=== PATIENT | male | born 1955 | race Caucasian/White ===

== ENCOUNTER 2016-11-25 17:30 | Emergency (ER) | payer OTHER ==
[2016-11-25] MEDS ORDERED: HYDROcodone/Acetaminophen 10/325 mg Tablet ONE (17:56)
[2016-11-25] MEDS ORDERED: Ketorolac Tromethamine 30 MG/ML VIAL ONE (17:57)
== END 2016-11-25 18:20 | disposition home or self-care (01) ==
LOC: BURERS 17:30
DX: G89.29 Other chronic pain (principal); M54.5 Low back pain; I10 Essential (primary) hypertension; F17.210 Nicotine dependence, cigarettes, uncomplicated
CPT/HCPCS: 96372; J1885

== ENCOUNTER 2016-12-30 16:10 | Emergency (ER) | payer OTHER ==
[2016-12-30] MEDS ORDERED: Ondansetron HCl/PF 4 MG/2 ML Vial ONE (16:35)
[2016-12-30 16:39] LABS: #Basophils 0.1 thou/uL (0.0-0.2); #Eosinphils 0.1 thou/uL (0.0-0.7); #Lymphocytes 2.6 thou/uL (1.20-3.40); #Monocytes 0.6 thou/uL (0.11-0.59); #Neutrophils 3.3 thou/uL (1.40-6.50); %Basophils 1.1 % (0.0-1.0); %Eosinophils 1.2 % (0.0-10.0); %Lymphocytes 39.1 % (21.0-51.0); %Monocytes 9.6 % (0.0-10.0); Hemoglobin 14.3 g/dL (14.0-18.0); Mean Corpuscular Hemoglobin 33.5 pg (27.0-31.0); Mean Corpuscular Volume 95.5 fl (80.0-94.0); Mean Platelet Volume 5.4 fL (7.4-10.4); Platelet Count 262 thou/uL (130-400); RBC Distribution Width 11.4 % (11.5-14.5); Red Blood Cell (RBC) Count 4.29 mill/uL (4.70-6.10); White Blood Cell (WBC) Count 6.7 thou/uL (4.8-10.8)
[2016-12-30 16:43] LABS: Bilirubin Negative (Negative); Blood, Urine Negative (Negative); Clarity Clear (Clear); Glucose, Urine (Dipstick) Negative (Negative); Leukocyte Negative (Negative); Nitrite Negative (Negative); Protein, Urine (Dipstick) Negative (Neg-Trace); Urobilinogen 0.2 mg/dL (0.2-1.0)
[2016-12-30 16:44] LABS: Specific Gravity, Urine 1.003 (1.002-1.036)
[2016-12-30] MEDS ORDERED: methylPREDNISolone Sod Succ/PF 125 MG/2 ML VIAL ONE (16:45)
[2016-12-30 16:58] LABS: ALT (SGPT) 33 U/L (0-55); AST (SGOT) 31 U/L (5-34); Albumin 4.4 g/dL (3.4-4.8); Alkaline Phosphatase 57 U/L (40-150); Anion Gap 17 mmol/L (10-20); BUN (Urea Nitrogen) 4 mg/dL (8.4-25.7); Bilirubin, Total 0.5 mg/dL (0.2-1.2); CK (CPK) 211 U/L (30-200); Calc. Creatinine Clearance 0 mL/min (70-130); Calcium 9.1 mg/dL (7.8-10.44); Carbon Dioxide 21 mmol/L (23-31); Chloride 89 mmol/L (98-107); Estimated GFR-MDRD Greater than 90; Globulin 2.8 g/dL (2.4-3.5); Glucose 95 mg/dL (80-115); Lipase 29 U/L (8-78); Protein, Total 7.2 g/dL (5.8-8.1); Sodium 123 mmol/L (136-145)
[2016-12-30] MEDS ORDERED: HYDROcodone/Acetaminophen 5/325 mg Tablet ONE (18:04)
== END 2016-12-30 18:08 | disposition home or self-care (01) ==
LOC: BURERS 16:10
DX: M54.5 Low back pain (principal); J44.9 Chronic obstructive pulmonary disease, unspecified; I10 Essential (primary) hypertension; F17.210 Nicotine dependence, cigarettes, uncomplicated; Z79.899 Other long term (current) drug therapy
CPT/HCPCS: 80053; 81003; 82550; 83690; 85025; 96361; 96374; 96375; 96376; J2270; J2405; J2930; J7620

== ENCOUNTER 2017-01-14 21:56 | Emergency (ER) | payer OTHER ==
[2017-01-14] MEDS ORDERED: Ketorolac Tromethamine 60 MG/2 ML VIAL ONE (22:23)
[2017-01-14] MEDS ORDERED: Morphine Sulfate 2 MG/ML SYRINGE ONE (22:23)
[2017-01-14] MEDS ORDERED: HYDROcodone/Acetaminophen 5/325 mg Tablet ONE (23:38)
== END 2017-01-15 00:08 | disposition home or self-care (01) ==
LOC: BURERS 21:56
DX: M54.5 Low back pain (principal); F10.129 Alcohol abuse with intoxication, unspecified; I10 Essential (primary) hypertension; F17.210 Nicotine dependence, cigarettes, uncomplicated; Z79.899 Other long term (current) drug therapy
CPT/HCPCS: 96372; J1885; J2270

== ENCOUNTER 2017-06-15 21:21 | Emergency (ER) | payer OTHER ==
[2017-06-15] MEDS ORDERED: Triamcinolone 40 MG/ML VIAL ONE (22:28)
[2017-06-15] MEDS ORDERED: Ketorolac Tromethamine 60 MG/2 ML VIAL ONE (22:29)
== END 2017-06-15 23:08 | disposition home or self-care (01) ==
LOC: BURERS 21:21
DX: M10.9 Gout, unspecified (principal); I10 Essential (primary) hypertension; F17.210 Nicotine dependence, cigarettes, uncomplicated; Z79.899 Other long term (current) drug therapy
CPT/HCPCS: 96372; J1885; J3301

== ENCOUNTER 2017-09-17 09:20 | Emergency (ER) | payer OTHER ==
[2017-09-17 09:48] LABS: Hemoglobin 17.7 g/dL (14.0-18.0); Mean Corpuscular HGB CONC 33.9 g/dL (32.0-36.0); Mean Corpuscular Hemoglobin 32.2 pg (27.0-31.0); Mean Corpuscular Volume 94.9 fl (80.0-94.0); Mean Platelet Volume 5.8 fL (7.4-10.4); Platelet Count 187 thou/uL (130-400); RBC Distribution Width 10.9 % (11.5-14.5); White Blood Cell (WBC) Count 5.5 thou/uL (4.8-10.8)
[2017-09-17] MEDS ORDERED: methylPREDNISolone Sod Succ/PF 125 MG/2 ML VIAL ONE (09:54)
[2017-09-17] MEDS ORDERED: Albuterol Sulfate 1.25 MG/3 ML NEB ONE (10:01)
[2017-09-17 10:03] LABS: ALT (SGPT) 35 U/L (8-55); AST (SGOT) 43 U/L (5-34); Albumin 4.2 g/dL (3.4-4.8); Alkaline Phosphatase 60 U/L (40-150); Anion Gap 16 mmol/L (10-20); BUN (Urea Nitrogen) 18 mg/dL (8.4-25.7); Bilirubin, Total 0.6 mg/dL (0.2-1.2); Calc. Creatinine Clearance 0 mL/min (70-130); Calcium 9.9 mg/dL (7.8-10.44); Carbon Dioxide 26 mmol/L (23-31); Chloride 95 mmol/L (98-107); Estimated GFR-MDRD 85; Globulin 3.8 g/dL (2.4-3.5); Glucose 116 mg/dL (80-115); Lipase 12 U/L (8-78); Sodium 133 mmol/L (136-145)
[2017-09-17 10:07] LABS: Band 1 % (5-11); Lymphocytes 19 % (21-51); MDiff Complete? YES; Neutrophil 62 % (42-75); PLT Morphology Comment Appears Adequate; RBC Morphology Normal; Reactive Lymphocytes 18 % (0-10)
[2017-09-17] MEDS ORDERED: cefTRIAXone\\ROCEPHIN 1 GM VIAL ONE (10:14)
[2017-09-17] MEDS ORDERED: Ketorolac Tromethamine 30 MG/ML VIAL ONE (10:35)
--- NOTE | 2017-09-17 20:41 | RAD ---
PORTABLE CHEST: 09/17/17 An AP portable film at 0929 is compared with a 12/18/16 study. The heart size is the same and is unchanged. There is no vascular congestion, edema, or pleural effusions. No lobar infiltrate was seen. The bony structures appear normal. IMPRESSION: No acute thoracic finding. POS: HOME
== END 2017-09-17 11:30 | disposition home or self-care (01) ==
LOC: BURERS 09:20
DX: J44.1 Chronic obstructive pulmonary disease with (acute) exacerbation (principal); J06.9 Acute upper respiratory infection, unspecified; I10 Essential (primary) hypertension; F17.210 Nicotine dependence, cigarettes, uncomplicated; Z79.899 Other long term (current) drug therapy
CPT/HCPCS: 36415; 71010; 80053; 83605; 83690; 83880; 85025; 94640; 94760; 96365; 96375; J0696; J1885; J2930; J7620

== ENCOUNTER 2017-09-23 14:47 | Emergency (ER) | payer OTHER ==
[2017-09-23] MEDS ORDERED: Ketorolac Tromethamine 60 MG/2 ML VIAL ONE (15:09)
[2017-09-23] MEDS ORDERED: Benzonatate 100 MG CAP ONE (15:09)
== END 2017-09-23 15:27 | disposition home or self-care (01) ==
LOC: BURERS 14:47
DX: R07.89 Other chest pain (principal); J44.9 Chronic obstructive pulmonary disease, unspecified; I10 Essential (primary) hypertension; M10.9 Gout, unspecified; F17.210 Nicotine dependence, cigarettes, uncomplicated; Z79.899 Other long term (current) drug therapy
CPT/HCPCS: 96372; J1885

== ENCOUNTER 2018-05-06 15:06 | Emergency (ER) | payer OTHER, SELFPAY ==
[2018-05-06] MEDS ORDERED: Ketorolac Tromethamine 60 MG/2 ML VIAL ONE (15:28)
[2018-05-06] MEDS ORDERED: methylPREDNISolone Sod Succ/PF 125 MG/2 ML VIAL ONE (15:28)
== END 2018-05-06 15:39 | disposition home or self-care (01) ==
LOC: BURERS 15:06
DX: M54.5 Low back pain (principal); J44.1 Chronic obstructive pulmonary disease with (acute) exacerbation; I10 Essential (primary) hypertension; F17.210 Nicotine dependence, cigarettes, uncomplicated
CPT/HCPCS: 96372; J1885; J2930

== ENCOUNTER 2018-05-07 12:45 | Emergency (ER) | payer OTHER | END 2018-05-07 12:59 | disposition home or self-care (01) | LOC: BURERS 12:45 | DX: M54.5 Low back pain (principal); F17.210 Nicotine dependence, cigarettes, uncomplicated; M10.9 Gout, unspecified; J44.9 Chronic obstructive pulmonary disease, unspecified | CPT/HCPCS: 99283 ==

== ENCOUNTER 2018-10-01 15:33 | Emergency (ER) | payer OTHER ==
[2018-10-01] MEDS ORDERED: Morphine 4 MG/ML VIAL ONE (16:21)
[2018-10-01] MEDS ORDERED: Ondansetron PF 4 MG/2 ML Vial ONE (16:22)
[2018-10-01 16:29] LABS: #Basophils 0.1 thou/uL (0.0-0.2); #Eosinphils 0.1 thou/uL (0.0-0.7); #Lymphocytes 2.9 thou/uL (1.20-3.40); #Monocytes 0.6 thou/uL (0.11-0.59); #Neutrophils 2.6 thou/uL (1.40-6.50); %Lymphocytes 46.1 % (21.0-51.0); %Monocytes 9.3 % (0.0-10.0); %Neutrophils 41.6 % (42.0-75.0); Hemoglobin 16.3 g/dL (14.0-18.0); Mean Corpuscular HGB CONC 37.6 g/dL (32.0-36.0); Mean Corpuscular Hemoglobin 32.2 pg (27.0-31.0); Mean Corpuscular Volume 85.6 fL (78.0-98.0); Mean Platelet Volume 5.9 fL (7.4-10.4); Platelet Count 243 thou/uL (130-400); RBC Distribution Width 10.8 % (11.5-14.5); Red Blood Cell (RBC) Count 5.06 mill/uL (4.70-6.10); White Blood Cell (WBC) Count 6.4 thou/uL (4.8-10.8)
[2018-10-01 16:30] LABS: Manual Diff?? YES
[2018-10-01 16:31] LABS: MDiff Complete? YES
[2018-10-01 16:36] LABS: ALT (SGPT) 25 U/L (8-55); AST (SGOT) 21 U/L (5-34); Albumin 4.4 g/dL (3.4-4.8); Alcohol 196 mg/dL (Less than 10); Alkaline Phosphatase 52 U/L (40-150); Anion Gap 16 mmol/L (10-20); BUN (Urea Nitrogen) 7 mg/dL (8.4-25.7); Bilirubin, Total 0.4 mg/dL (0.2-1.2); Calc. Creatinine Clearance 0 mL/min (70-130); Calcium 9.1 mg/dL (7.8-10.44); Carbon Dioxide 24 mmol/L (23-31); Chloride 90 mmol/L (98-107); Estimated GFR-MDRD Greater than 90; Globulin 2.9 g/dL (2.4-3.5); Glucose 97 mg/dL (80-115); Potassium 3.8 mmol/L (3.5-5.1); Protein, Total 7.3 g/dL (5.8-8.1); Sodium 126 mmol/L (136-145)
[2018-10-01] MEDS ORDERED: Pantoprazole 40 MG VIAL ONE (17:25)
[2018-10-01] MEDS ORDERED: Ketorolac Tromethamine 30 MG/ML VIAL ONE (17:25)
--- NOTE | 2018-10-01 18:47 | CT ---
CT OF ABDOMEN AND PELVIS WITH CONTRAST: 10/01/18 COMPARISON: 12/18/16 HISTORY: Abdominal pain. The patient thinks that this could be pancreatitis as it is similar to a prior episode of pancreatiti s. TECHNIQUE: Multiple contiguous axial images were obtained in a CT of the abdomen and pelvis with contrast. Coron al reformats were performed. FINDINGS: The liver, gallbladder, kidneys, adrenal glands, spleen, and pancreas are unremarkable. No free air, free fluid, or stranding changes are seen in the abdomen or pelvis. The large and small bowel are unremarkable. No abdominal or pelvic lymphadenopathy are seen. Prostate is mildly enlarged. Atherosclerotic calcifications are seen in the aorta. These calcifications are w orst distally. There is an area of significant high grade flow stenosis of the left external iliac ar felisa. This has worsened compared to the prior examination. Degenerative changes are seen in the spine. The abdominal wall soft tissues and visualized inferior t horax are unremarkable. IMPRESSION: 1. No evidence of acute intra-abdominal/pelvic abnormality. 2. Atherosclerotic disease. There is an area of focal high grade stenosis of the left external i liac artery. However, this is patent at this time, evaluation with angiography or a CTA is likely nec essary. Correlate with symptoms of claudication or rest pain. POS: [facility]
== END 2018-10-01 17:37 | disposition home or self-care (01) ==
LOC: BURERS 15:33
DX: R10.9 Unspecified abdominal pain (principal); J44.9 Chronic obstructive pulmonary disease, unspecified; I10 Essential (primary) hypertension; M10.9 Gout, unspecified; F17.210 Nicotine dependence, cigarettes, uncomplicated
CPT/HCPCS: 74177; 80053; 80307; 82150; 83690; 84484; 85025; 93005; 96374; 96375; C9113; J1885; J2270; J2405

== ENCOUNTER 2018-10-26 15:02 | Emergency (ER) | payer OTHER ==
[2018-10-26] MEDS ORDERED: Ondansetron ODT 4 MG TAB ONE (15:14)
== END 2018-10-26 15:48 | disposition home or self-care (01) ==
LOC: BURERS 15:02
DX: R11.2 Nausea with vomiting, unspecified (principal); J44.9 Chronic obstructive pulmonary disease, unspecified; I10 Essential (primary) hypertension; M10.9 Gout, unspecified; F17.210 Nicotine dependence, cigarettes, uncomplicated
CPT/HCPCS: 87804; 96372; Q0162

== ENCOUNTER 2018-11-10 16:34 | Emergency (ER) | payer OTHER ==
[2018-11-10 17:06] LABS: #Basophils 0.1 thou/uL (0.0-0.2); #Eosinphils 0.1 thou/uL (0.0-0.7); #Lymphocytes 2.3 thou/uL (1.20-3.40); #Monocytes 0.5 thou/uL (0.11-0.59); #Neutrophils 3.9 thou/uL (1.40-6.50); %Basophils 0.9 % (0.0-1.0); %Eosinophils 1.2 % (0.0-10.0); %Lymphocytes 33.9 % (21.0-51.0); %Monocytes 6.7 % (0.0-10.0); %Neutrophils 57.3 % (42.0-75.0); Hemoglobin 15.1 g/dL (14.0-18.0); Mean Corpuscular HGB CONC 36.1 g/dL (32.0-36.0); Mean Corpuscular Hemoglobin 32.5 pg (27.0-31.0); Mean Platelet Volume 5.4 fL (7.4-10.4); Platelet Count 370 thou/uL (130-400); RBC Distribution Width 10.7 % (11.5-14.5); Red Blood Cell (RBC) Count 4.65 mill/uL (4.70-6.10); White Blood Cell (WBC) Count 6.8 thou/uL (4.8-10.8)
[2018-11-10] MEDS ORDERED: Benzonatate 100 MG CAP ONE (17:11)
[2018-11-10] MEDS ORDERED: methylPREDNISolone Sod Succ/PF 125 MG/2 ML VIAL ONE (17:11)
[2018-11-10 17:24] LABS: ALT (SGPT) 18 U/L (8-55); AST (SGOT) 18 U/L (5-34); Albumin 3.9 g/dL (3.4-4.8); Alkaline Phosphatase 52 U/L (40-150); Anion Gap 15 mmol/L (10-20); BUN (Urea Nitrogen) 10 mg/dL (8.4-25.7); Bilirubin, Total 0.3 mg/dL (0.2-1.2); Calc. Creatinine Clearance 0 mL/min (70-130); Calcium 9.8 mg/dL (7.8-10.44); Carbon Dioxide 25 mmol/L (23-31); Chloride 98 mmol/L (98-107); Estimated GFR-MDRD Greater than 90; Globulin 3.4 g/dL (2.4-3.5); Glucose 120 mg/dL (80-115); Potassium 3.9 mmol/L (3.5-5.1); Protein, Total 7.3 g/dL (5.8-8.1); Sodium 134 mmol/L (136-145)
--- NOTE | 2018-11-10 21:46 | RAD ---
CHEST TWO VIEWS: 11/10/2018 COMPARISON: 09/17/2017 FINDINGS: The heart is normal in size. There is no vascular congestion, edema, or pleural effusion. The lungs are mildly hyperinflated. On the lateral view, there is suggestion of a little streaking b ehind the heart. On the PA film, there is some questionable streaking near the cardiac apex. I danyelle ot exclude a very minor left basilar infiltrate. The lungs are otherwise clear. IMPRESSION: Equivocal left basilar infiltrate. POS: HOME
== END 2018-11-10 17:57 | disposition home or self-care (01) ==
LOC: BURERS 16:34
DX: J44.1 Chronic obstructive pulmonary disease with (acute) exacerbation (principal); I10 Essential (primary) hypertension; F17.210 Nicotine dependence, cigarettes, uncomplicated; M10.9 Gout, unspecified
CPT/HCPCS: 71046; 80053; 84484; 85025; 93005; 96374; J2930; J7620

== ENCOUNTER 2018-11-16 12:32 | Emergency (ER) | payer OTHER ==
[2018-11-16] MEDS ORDERED: Fentanyl 100 MCG/2 ML VIAL ONE ×2 (12:55→13:57)
[2018-11-16] MEDS ORDERED: Thiamine HCl 200 MG/2 ML VIAL ONE (12:56)
[2018-11-16] MEDS ORDERED: Famotidine In NaCl 20 mg/50 ml Premix Bag ONE (12:56)
[2018-11-16] MEDS ORDERED: Ondansetron ODT 4 MG TAB ONE (12:56)
[2018-11-16 13:12] LABS: Clarity Clear (Clear)
[2018-11-16 13:15] LABS: Bilirubin Negative (Negative); Blood, Urine Negative (Negative); Glucose, Urine (Dipstick) Negative (Negative); Leukocyte Negative (Negative); Nitrite Negative (Negative); Protein, Urine (Dipstick) Negative (Neg-Trace); Specific Gravity, Urine 1.002 (1.002-1.036); Urobilinogen 0.2 mg/dL (0.2-1.0)
[2018-11-16 13:19] LABS: #Basophils 0.1 thou/uL (0.0-0.2); #Eosinphils 0.1 thou/uL (0.0-0.7); #Lymphocytes 3.1 thou/uL (1.20-3.40); #Monocytes 0.7 thou/uL (0.11-0.59); #Neutrophils 4.8 thou/uL (1.40-6.50); %Eosinophils 0.6 % (0.0-10.0); %Lymphocytes 35.6 % (21.0-51.0); %Monocytes 7.6 % (0.0-10.0); %Neutrophils 55.2 % (42.0-75.0); Hemoglobin 16.8 g/dL (14.0-18.0); Mean Corpuscular HGB CONC 34.8 g/dL (32.0-36.0); Mean Corpuscular Hemoglobin 31.4 pg (27.0-31.0); Mean Corpuscular Volume 90.3 fL (78.0-98.0); Mean Platelet Volume 5.8 fL (7.4-10.4); Platelet Count 383 thou/uL (130-400); RBC Distribution Width 10.9 % (11.5-14.5); Red Blood Cell (RBC) Count 5.34 mill/uL (4.70-6.10); White Blood Cell (WBC) Count 8.7 thou/uL (4.8-10.8)
[2018-11-16 13:33] LABS: ALT (SGPT) 27 U/L (8-55); AST (SGOT) 21 U/L (5-34); Albumin 4.3 g/dL (3.4-4.8); Alcohol 135 mg/dL (Less than 10); Alkaline Phosphatase 56 U/L (40-150); Anion Gap 16 mmol/L (10-20); BUN (Urea Nitrogen) 10 mg/dL (8.4-25.7); Bilirubin, Total 0.6 mg/dL (0.2-1.2); Calc. Creatinine Clearance 0 mL/min (70-130); Calcium 9.6 mg/dL (7.8-10.44); Carbon Dioxide 24 mmol/L (23-31); Chloride 94 mmol/L (98-107); Estimated GFR-MDRD Greater than 90; Globulin 3.3 g/dL (2.4-3.5); Glucose 91 mg/dL (80-115); Lipase 35 U/L (8-78); Magnesium 2.1 mg/dL (1.6-2.6); Potassium 3.7 mmol/L (3.5-5.1); Protein, Total 7.6 g/dL (5.8-8.1); Sodium 130 mmol/L (136-145)
[2018-11-16] MEDS ORDERED: Lidocaine Viscous Sol 2% 15 ml UD Cup ONE (14:41)
[2018-11-16] MEDS ORDERED: Mag-Al Plus 1200 MG/1200 MG/120 MG/30 ML UDCUP ONE (14:41)
== END 2018-11-16 15:22 | disposition home or self-care (01) ==
LOC: BURERS 12:32
DX: K29.60 Other gastritis without bleeding (principal); F10.129 Alcohol abuse with intoxication, unspecified; I10 Essential (primary) hypertension; M10.9 Gout, unspecified; F17.210 Nicotine dependence, cigarettes, uncomplicated
CPT/HCPCS: 80053; 80307; 81003; 83690; 83735; 83880; 84484; 85025; 94640; 94760; 96361; 96365; 96375; 96376; J3010; J3411; J7620; Q0162

== ENCOUNTER 2018-12-29 07:16 | Emergency (ER) | payer OTHER ==
[2018-12-29] MEDS ORDERED: Fentanyl 100 MCG/2 ML VIAL ONE (07:37)
[2018-12-29] MEDS ORDERED: Ondansetron PF 4 MG/2 ML Vial ONE (07:37)
[2018-12-29 07:48] LABS: #Lymphocytes 1.7 thou/uL (1.20-3.40); #Monocytes 0.6 thou/uL (0.11-0.59); #Neutrophils 7.3 thou/uL (1.40-6.50); %Basophils 0.5 % (0.0-1.0); %Eosinophils 0.2 % (0.0-10.0); %Monocytes 6.3 % (0.0-10.0); Hemoglobin 16.3 g/dL (14.0-18.0); Mean Corpuscular HGB CONC 34.2 g/dL (32.0-36.0); Mean Corpuscular Hemoglobin 32.3 pg (27.0-31.0); Mean Corpuscular Volume 94.3 fL (78.0-98.0); Mean Platelet Volume 5.5 fL (7.4-10.4); Platelet Count 289 thou/uL (130-400); RBC Distribution Width 12.4 % (11.5-14.5); Red Blood Cell (RBC) Count 5.05 mill/uL (4.70-6.10); White Blood Cell (WBC) Count 9.7 thou/uL (4.8-10.8)
[2018-12-29 08:04] LABS: ALT (SGPT) 27 U/L (8-55); AST (SGOT) 16 U/L (5-34); Albumin 4.3 g/dL (3.4-4.8); Alkaline Phosphatase 51 U/L (40-150); Anion Gap 17 mmol/L (10-20); BUN (Urea Nitrogen) 14 mg/dL (8.4-25.7); Bilirubin, Total 0.7 mg/dL (0.2-1.2); Calc. Creatinine Clearance 0 mL/min (70-130); Calcium 9.5 mg/dL (7.8-10.44); Carbon Dioxide 25 mmol/L (23-31); Chloride 93 mmol/L (98-107); Estimated GFR-MDRD 73; Globulin 2.8 g/dL (2.4-3.5); Glucose 172 mg/dL (80-115); Lipase 22 U/L (8-78); Potassium 3.9 mmol/L (3.5-5.1); Protein, Total 7.1 g/dL (5.8-8.1); Sodium 131 mmol/L (136-145)
[2018-12-29] MEDS ORDERED: Morphine 4 MG/ML VIAL ONE (08:09)
[2018-12-29] MEDS ORDERED: Iopamidol 370 76% 100 ML VIAL ONE (08:20)
[2018-12-29] MEDS ORDERED: Mag-Al Plus 1200 MG/1200 MG/120 MG/30 ML UDCUP ONE (08:44)
[2018-12-29] MEDS ORDERED: Lidocaine Viscous Sol 2% 15 ml UD Cup ONE (08:44)
[2018-12-29] MEDS ORDERED: Pantoprazole 40 MG VIAL ONE (08:44)
--- NOTE | 2018-12-29 18:54 | CT ---
CT ABDOMEN PELVIS WITH CONTRAST: Date: 12-29-18 Technique: Spiral CT of the abdomen and pelvis was performed for evaluation of epigastric pain. Comparison: Prior scans including those from 10-01-18 and 05-12-15. History: There is a prior history of pancreatitis. FINDINGS: The lung bases are clear, however, there is a small 2.7 cm pleural-based mass in the left lower chest anteriorly at the level of the heart. It was not present on the prior scan of 10-01-18. I see no abn ormality then, even in retrospect. This requires further follow up. Some of its edges are slightly ir regular. Thus, a neoplasm is not ruled out. The liver and spleen are normal in size. There is a very vague low density area in the peripheral rig ht lobe of the liver and in the inferior right lobe, the latter of which shows some contrast enhancem ent. The appearance is very similar to the September study and has not changed significantly. A small hemangioma is possible, or small cyst. The pancreas appeared normal with no sign of mass or peripancr eatic streaking to suggest pancreatitis. No adrenal or renal abnormality was seen. The aorta is calci fied but is normal in caliber throughout. There are some fluid filled loops of proximal small bowel and fluid also in the stomach. Some of the small bowel loops are perhaps minimally thickened. There is no obstruction. The findings raise the po ssibility of gastroenteritis. I would note that the patient has a bowel malrotation which much of th e small bowel in the right upper quadrant, a finding that has been mentioned on prior scans. No free air or free fluid was seen. CT of the pelvis shows no pelvic masses, fluid collections, or inflammatory changes. The prostate is somewhat large measuring a little over 5 cm in diameter. IMPRESSION: 1. No evidence of pancreatitis. 2. Fluid-filled stomach and proximal small bowel with some mild thickening. Gastroenteritis is consid ered. 3. 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 4. 2.7 cm pleural-based mass in the left lower chest anteriorly, this is a new finding that was not p resent on the September [address] scan[address] scan of the contrast is recommended and this ultimately may ne ed to be biopsied. Initial report discussed with Dr. Malave at 0836 on 12-29-18. Follow up discussion with Dr. Boucher on 1719 on 12-29-18 regarding the pleural-based mass and need for further follow up. POS: HOME
== END 2018-12-29 08:57 | disposition home or self-care (01) ==
LOC: BURERS 07:16
DX: R10.10 Upper abdominal pain, unspecified (principal); J44.9 Chronic obstructive pulmonary disease, unspecified; I10 Essential (primary) hypertension; M10.9 Gout, unspecified; F17.210 Nicotine dependence, cigarettes, uncomplicated
CPT/HCPCS: 74177; 80053; 83690; 84484; 85025; 93005; 96374; 96375; C9113; J2270; J2405; J3010; Q9967

== ENCOUNTER 2019-01-14 16:23 | Emergency (ER) | payer OTHER ==
[2019-01-14] MEDS ORDERED: traMADol HCl 50 MG TAB ONE (17:00)
[2019-01-14] MEDS ORDERED: Ketorolac Tromethamine 30 MG/ML VIAL ONE (17:01)
== END 2019-01-14 17:07 | disposition home or self-care (01) ==
LOC: BURERS 16:23
DX: M54.5 Low back pain (principal); J44.9 Chronic obstructive pulmonary disease, unspecified; F17.210 Nicotine dependence, cigarettes, uncomplicated; M10.9 Gout, unspecified
CPT/HCPCS: 96372; J1885

== ENCOUNTER 2019-05-14 18:50 | Emergency (ER) | payer MEDICARE, OTHER ==
--- NOTE | 2019-05-14 23:05 | RAD ---
CHEST: 05/14/2019 COMPARISON: PA and lateral views are compared with prior studies dating back to 09/17/2017. FINDINGS: The heart is normal in size. There is no lobar infiltrate or effusion. The lungs are slightly hyper expanded. There is some linear streaking near the lingula of the left upper lobe. This could just b e atelectasis or scarring. Otherwise, the lungs are unremarkable. IMPRESSION: Slightly hyperexpanded lungs. Lingular streaking, which seems more likely old than new. POS: HOME
== END 2019-05-14 19:29 | disposition home or self-care (01) ==
LOC: BURERS 18:50
DX: J06.9 Acute upper respiratory infection, unspecified (principal); I10 Essential (primary) hypertension; J44.9 Chronic obstructive pulmonary disease, unspecified; M10.9 Gout, unspecified; F17.210 Nicotine dependence, cigarettes, uncomplicated
CPT/HCPCS: 71046

== ENCOUNTER 2019-10-29 13:05 | Emergency (ER) | payer MEDICARE ==
[2019-10-29] MEDS ORDERED: Ketorolac Tromethamine 30 MG/ML VIAL ONE (14:06)
[2019-10-29 14:12] LABS: #Basophils 0.1 thou/uL (0.0-0.2); #Eosinphils 0.1 thou/uL (0.0-0.7); #Lymphocytes 2.5 thou/uL (1.20-3.40); #Monocytes 0.7 thou/uL (0.11-0.59); #Neutrophils 6.9 thou/uL (1.40-6.50); %Basophils 0.8 % (0.0-1.0); %Eosinophils 0.9 % (0.0-10.0); %Lymphocytes 23.9 % (21.0-51.0); %Neutrophils 67.4 % (42.0-75.0); Hemoglobin 14.9 g/dL (14.0-18.0); Mean Corpuscular HGB CONC 33.8 g/dL (32.0-36.0); Mean Corpuscular Hemoglobin 31.7 pg (27.0-31.0); Mean Corpuscular Volume 93.8 fL (78.0-98.0); Mean Platelet Volume 5.6 fL (7.4-10.4); Platelet Count 324 thou/uL (130-400); Red Blood Cell (RBC) Count 4.68 mill/uL (4.70-6.10); White Blood Cell (WBC) Count 10.3 thou/uL (4.8-10.8)
[2019-10-29 14:27] LABS: ALT (SGPT) 16 U/L (8-55); AST (SGOT) 15 U/L (5-34); Albumin 4.2 g/dL (3.4-4.8); Alkaline Phosphatase 51 U/L (40-110); Anion Gap 18 mmol/L (10-20); BUN (Urea Nitrogen) 8 mg/dL (8.4-25.7); Bilirubin, Total 0.3 mg/dL (0.2-1.2); Calc. Creatinine Clearance 0 mL/min (70-130); Calcium 9.5 mg/dL (7.8-10.44); Carbon Dioxide 22 mmol/L (23-31); Chloride 95 mmol/L (98-107); Estimated GFR-MDRD Greater than 90; Globulin 3.2 g/dL (2.4-3.5); Glucose 97 mg/dL (80-115); Potassium 3.9 mmol/L (3.5-5.1); Protein, Total 7.4 g/dL (5.8-8.1); Sodium 131 mmol/L (136-145)
--- NOTE | 2019-10-29 17:55 | RAD ---
PORTABLE CHEST: 10/29/19 An AP portable film at 1410 is compared with an 05/14/19 study. The heart is normal in size and the lungs are clear. There is no sign of pneumonia, pleural effusion, or pulmonary edema. IMPRESSION: No acute thoracic finding. POS: HOME
== END 2019-10-29 15:33 | disposition home or self-care (01) ==
LOC: BURERS 13:05
DX: J06.9 Acute upper respiratory infection, unspecified (principal); J44.9 Chronic obstructive pulmonary disease, unspecified; M10.9 Gout, unspecified; I10 Essential (primary) hypertension; F17.210 Nicotine dependence, cigarettes, uncomplicated
CPT/HCPCS: 71045; 80053; 83880; 84484; 85025; 87804; 93005; 96372; J1885; J7620

== ENCOUNTER 2019-11-05 12:23 | Emergency (ER) | payer MEDICARE ==
[2019-11-05] MEDS ORDERED: AMOXicillin 250 MG CAP ONE (13:00)
== END 2019-11-05 13:28 | disposition home or self-care (01) ==
LOC: BURERS 12:23
DX: J06.9 Acute upper respiratory infection, unspecified (principal); I10 Essential (primary) hypertension; J44.9 Chronic obstructive pulmonary disease, unspecified; M10.9 Gout, unspecified; F17.210 Nicotine dependence, cigarettes, uncomplicated; Z79.899 Other long term (current) drug therapy; Z79.51 Long term (current) use of inhaled steroids
CPT/HCPCS: 94640; J7620

== ENCOUNTER 2020-04-09 13:59 | Emergency (ER) | payer MEDICARE | END 2020-04-09 14:50 | disposition home or self-care (01) | LOC: BURERS 13:59 | DX: K40.90 Unilateral inguinal hernia, without obstruction or gangrene, not specified as recurrent (principal); I10 Essential (primary) hypertension; J44.9 Chronic obstructive pulmonary disease, unspecified; M10.9 Gout, unspecified; F17.210 Nicotine dependence, cigarettes, uncomplicated; Z79.899 Other long term (current) drug therapy ==

== ENCOUNTER 2020-09-16 14:20 | Emergency (ER) | payer MEDICARE ==
[2020-09-16] MEDS ORDERED: Ketorolac Tromethamine 30 MG/ML VIAL ONE (15:40)
[2020-09-16] MEDS ORDERED: predniSONE 20 MG TAB ONE (15:40)
--- NOTE | 2020-09-16 16:43 | RAD ---
RIGHT WRIST THREE VIEWS: 09/16/20 No acute fracture or area of bony destruction was seen. there may have been old trauma to the scaphoi d but certainly nothing recent. The carpal relationships are normal in appearance. The scapholunate s pace appears widened and there may even be a few old bony fragments here. It would not surprise me if there was a scapholunate dissociation from the past. There is at least 3 mm between these two bones. Arterial calcifications were noted. 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 No acute bony findings. POS: HOME
--- NOTE | 2020-09-16 16:47 | RAD ---
LEFT WRIST THREE VIEWS: 09/16/20 No acute fracture was seen. Arthritic changes are not prominent. There is a small amount of irregular ity to the scaphoid. There might have been old trauma here in the past. The articulation between the hamate and base of the fifth metacarpal seems flattened. I would not be surprised if there were old t rauma in this location in the past. There does appear to be some irregularity of the distal ulna at t he styloid suggesting old trauma. Finally, there may be some calcification of the triangular fibrocar tilage on the medial side of the wrist. This can sometimes be seen in various causes of chondrocalcin osis such as pyrophosphate deposition diseases. IMPRESSION: 1. Probable old trauma to the wrist but no acute findings. 2. Calcification of the triangular fibrocartilage. See above. POS: HOME
== END 2020-09-16 15:54 | disposition home or self-care (01) ==
LOC: BURERS 14:20
DX: M25.531 Pain in right wrist (principal); M25.532 Pain in left wrist; I10 Essential (primary) hypertension; J44.9 Chronic obstructive pulmonary disease, unspecified; M10.9 Gout, unspecified; F17.210 Nicotine dependence, cigarettes, uncomplicated
CPT/HCPCS: 96372; J1885; J7512

== ENCOUNTER 2020-11-11 13:18 | Emergency (ER) | payer MEDICARE ==
[2020-11-11] MEDS ORDERED: Ketorolac Tromethamine 30 MG/ML VIAL ONE (13:44)
== END 2020-11-11 14:08 | disposition home or self-care (01) ==
LOC: BURERS 13:18
DX: G56.03 Carpal tunnel syndrome, bilateral upper limbs (principal); I10 Essential (primary) hypertension; J44.9 Chronic obstructive pulmonary disease, unspecified; M10.9 Gout, unspecified; F17.210 Nicotine dependence, cigarettes, uncomplicated
CPT/HCPCS: 96372; 99283; J1885

== ENCOUNTER 2021-04-14 12:15 | Emergency (ER) | payer MEDICARE ==
[2021-04-14] MEDS ORDERED: Ketorolac Tromethamine 30 MG/ML VIAL ONE (12:52)
== END 2021-04-14 13:26 | disposition home or self-care (01) ==
LOC: BURERS 12:15
DX: G56.01 Carpal tunnel syndrome, right upper limb (principal); I10 Essential (primary) hypertension; J44.9 Chronic obstructive pulmonary disease, unspecified; M10.9 Gout, unspecified; F17.210 Nicotine dependence, cigarettes, uncomplicated
CPT/HCPCS: 96372; 99283; J1885

== ENCOUNTER 2021-06-12 14:18 | Emergency (ER) | payer MEDICARE ==
[2021-06-12] MEDS ORDERED: AMOXicillin 250 MG CAP ONE (14:41)
== END 2021-06-12 14:58 | disposition home or self-care (01) ==
LOC: BURERS 14:18
DX: H66.92 Otitis media, unspecified, left ear (principal); J44.9 Chronic obstructive pulmonary disease, unspecified; J06.9 Acute upper respiratory infection, unspecified; I10 Essential (primary) hypertension; M10.9 Gout, unspecified; F17.210 Nicotine dependence, cigarettes, uncomplicated
CPT/HCPCS: 99283

== ENCOUNTER 2021-07-30 14:15 | Emergency (ER) | payer MEDICARE ==
[2021-07-30] MEDS ORDERED: Ketorolac Tromethamine 30 MG/ML VIAL ONE (14:59)
== END 2021-07-30 15:15 | disposition home or self-care (01) ==
LOC: BURERS 14:15
DX: G89.18 Other acute postprocedural pain (principal); M25.531 Pain in right wrist; I10 Essential (primary) hypertension; J44.9 Chronic obstructive pulmonary disease, unspecified; F17.210 Nicotine dependence, cigarettes, uncomplicated
CPT/HCPCS: 96372; J1885

== ENCOUNTER 2021-09-19 16:35 | Emergency (ER) | payer MEDICARE ==
[2021-09-19] MEDS ORDERED: Ketorolac Tromethamine 30 MG/ML VIAL ONE (17:05)
== END 2021-09-19 17:11 | disposition home or self-care (01) ==
LOC: BURERS 16:35
DX: M79.641 Pain in right hand (principal); G89.29 Other chronic pain; L53.9 Erythematous condition, unspecified; I10 Essential (primary) hypertension; J44.9 Chronic obstructive pulmonary disease, unspecified; M10.9 Gout, unspecified; F17.210 Nicotine dependence, cigarettes, uncomplicated; Z79.899 Other long term (current) drug therapy
CPT/HCPCS: 96372; 99283; J1885

== ENCOUNTER 2021-09-29 14:17 | Emergency (ER) | payer MEDICARE | END 2021-09-29 14:47 | disposition home or self-care (01) | LOC: BURERS 14:17 | DX: M25.531 Pain in right wrist (principal); I10 Essential (primary) hypertension; J44.9 Chronic obstructive pulmonary disease, unspecified; M10.9 Gout, unspecified; F17.210 Nicotine dependence, cigarettes, uncomplicated | CPT/HCPCS: 99283 ==

== ENCOUNTER 2022-01-07 16:46 | Emergency (ER) | payer MEDICARE ==
[2022-01-07] MEDS ORDERED: predniSONE 20 MG TAB ONE (18:26)
== END 2022-01-07 18:30 | disposition home or self-care (01) ==
LOC: BURERS 16:46
DX: M25.531 Pain in right wrist (principal); J44.9 Chronic obstructive pulmonary disease, unspecified; F17.210 Nicotine dependence, cigarettes, uncomplicated
CPT/HCPCS: J7512

== ENCOUNTER 2022-02-11 14:25 | Emergency (ER) | payer MEDICARE, OTHER ==
[2022-02-11] MEDS ORDERED: Ketorolac Tromethamine 30 MG/ML VIAL ONE (14:39)
[2022-02-11] MEDS ORDERED: Dexamethasone 4 MG TAB ONE (14:41)
== END 2022-02-11 14:56 | disposition home or self-care (01) ==
LOC: BURERS 14:25
DX: G89.29 Other chronic pain (principal); M54.50 Low back pain, unspecified; I10 Essential (primary) hypertension; J44.9 Chronic obstructive pulmonary disease, unspecified; F17.210 Nicotine dependence, cigarettes, uncomplicated; Z79.899 Other long term (current) drug therapy
CPT/HCPCS: 96372; 99283; J1885; J8540

== ENCOUNTER 2022-03-20 13:58 | Emergency (ER) | payer OTHER ==
[2022-03-20 15:21] LABS: #Basophils 0.1 thou/uL (0.0-0.2); #Eosinphils 0.1 thou/uL (0.0-0.7); #Lymphocytes 2.8 thou/uL (1.20-3.40); #Monocytes 0.6 thou/uL (0.11-0.59); #Neutrophils 3.6 thou/uL (1.40-6.50); %Eosinophils 1.5 % (0.0-10.0); %Lymphocytes 39.4 % (21.0-51.0); %Neutrophils 50.1 % (42.0-75.0); Hemoglobin 14.8 g/dL (14.0-18.0); Mean Corpuscular HGB CONC 34.1 g/dL (32.0-36.0); Mean Corpuscular Hemoglobin 31.6 pg (27.0-31.0); Mean Corpuscular Volume 92.6 fL (78.0-98.0); Mean Platelet Volume 6.7 fL (7.4-10.4); Platelet Count 292 thou/uL (130-400); RBC Distribution Width 10.9 % (11.5-14.5); Red Blood Cell (RBC) Count 4.68 mill/uL (4.70-6.10); White Blood Cell (WBC) Count 7.2 thou/uL (4.8-10.8)
[2022-03-20 15:29] LABS: Prothrombin Time 12.9 sec (12.0-14.7)
[2022-03-20 15:37] LABS: ALT (SGPT) 22 U/L (8-55); AST (SGOT) 17 U/L (5-34); Albumin 4.3 g/dL (3.4-4.8); Alkaline Phosphatase 46 U/L (40-110); Anion Gap 16 mmol/L (10-20); BUN (Urea Nitrogen) 7 mg/dL (8.4-25.7); Bilirubin, Total 0.4 mg/dL (0.2-1.2); Calc. Creatinine Clearance 0 mL/min (70-130); Calcium 9.1 mg/dL (7.8-10.44); Carbon Dioxide 23 mmol/L (23-31); Chloride 98 mmol/L (98-107); Globulin 2.9 g/dL (2.4-3.5); Glucose 93 mg/dL (80-115); Potassium 3.7 mmol/L (3.5-5.1); Protein, Total 7.2 g/dL (5.8-8.1); Sodium 133 mmol/L (136-145)
== END 2022-03-20 16:49 | disposition short-term general hospital (02) ==
LOC: BURERS 13:58
DX: M79.89 Other specified soft tissue disorders (principal); M96.89 Other intraoperative and postprocedural complications and disorders of the musculoskeletal system; I10 Essential (primary) hypertension; J44.9 Chronic obstructive pulmonary disease, unspecified; F17.210 Nicotine dependence, cigarettes, uncomplicated; Z79.899 Other long term (current) drug therapy
CPT/HCPCS: 36415; 80053; 85025; 85610; 99284

== ENCOUNTER 2022-03-24 18:37 | Emergency (ER) | payer OTHER, MEDICARE | END 2022-03-24 19:42 | disposition home or self-care (01) | LOC: BURERS 18:37 | DX: G89.29 Other chronic pain (principal); M25.531 Pain in right wrist | CPT/HCPCS: 99281 ==

== ENCOUNTER 2022-03-28 14:21 | Emergency (ER) | payer OTHER ==
[2022-03-28] MEDS ORDERED: Clindamycin 150 MG CAP ONE (14:58)
[2022-03-28] MEDS ORDERED: Ibuprofen 800 MG TAB ONE (15:01)
== END 2022-03-28 15:13 | disposition home or self-care (01) ==
LOC: BURERS 14:21
DX: L03.113 Cellulitis of right upper limb (principal); I10 Essential (primary) hypertension; J44.9 Chronic obstructive pulmonary disease, unspecified; F17.210 Nicotine dependence, cigarettes, uncomplicated

== ENCOUNTER 2022-05-06 14:08 | Emergency (ER) | payer MEDICARE, OTHER ==
[2022-05-06] MEDS ORDERED: Ketorolac Tromethamine 30 MG/ML VIAL ONE (14:58)
== END 2022-05-06 15:00 | disposition home or self-care (01) ==
LOC: BURERS 14:08
DX: M25.531 Pain in right wrist (principal); G89.29 Other chronic pain; I10 Essential (primary) hypertension; J44.9 Chronic obstructive pulmonary disease, unspecified; F17.210 Nicotine dependence, cigarettes, uncomplicated
CPT/HCPCS: 96372; 99282; J1885

== ENCOUNTER 2022-10-22 16:09 | Emergency (ER) | payer OTHER ==
[2022-10-22] MEDS ORDERED: Ketorolac Tromethamine 60 MG/2 ML VIAL ONE (16:25)
== END 2022-10-22 16:39 | disposition home or self-care (01) ==
LOC: BURERS 16:09
DX: M19.042 Primary osteoarthritis, left hand (principal); M16.12 Unilateral primary osteoarthritis, left hip; J44.9 Chronic obstructive pulmonary disease, unspecified; I10 Essential (primary) hypertension; F17.210 Nicotine dependence, cigarettes, uncomplicated
CPT/HCPCS: 96372; 99283; J1885

== ENCOUNTER 2022-12-07 13:50 | Emergency (ER) | payer OTHER ==
[2022-12-07] MEDS ORDERED: Ipratropium/Albuterol 3 ML NEB ONE (14:13)
[2022-12-07 14:25] LABS: #Basophils 0.1 thou/uL (0.0-0.2); #Eosinphils 0.1 thou/uL (0.0-0.7); #Lymphocytes 2.5 thou/uL (1.20-3.40); #Monocytes 0.6 thou/uL (0.11-0.59); #Neutrophils 3.1 thou/uL (1.40-6.50); %Basophils 1.4 % (0.0-1.0); %Eosinophils 1.3 % (0.0-10.0); %Lymphocytes 39.4 % (21.0-51.0); %Monocytes 9.2 % (0.0-10.0); %Neutrophils 48.7 % (42.0-75.0); Hemoglobin 16.2 g/dL (14.0-18.0); Mean Corpuscular HGB CONC 36.1 g/dL (32.0-36.0); Mean Corpuscular Hemoglobin 32.1 pg (27.0-31.0); Mean Corpuscular Volume 88.8 fl (78.0-98.0); Mean Platelet Volume 6.4 fL (7.4-10.4); Platelet Count 338 10x3/uL (130-400); RBC Distribution Width 11.4 % (11.5-14.5); Red Blood Cell (RBC) Count 5.05 mill/uL (4.70-6.10); White Blood Cell (WBC) Count 6.4 10x3/uL (4.8-10.8)
[2022-12-07 14:41] LABS: ALT (SGPT) 22 U/L (8-55); AST (SGOT) 20 U/L (5-34); Albumin 4.5 g/dL (3.4-4.8); Alkaline Phosphatase 94 U/L (40-110); Anion Gap 18 mmol/L (10-20); BUN (Urea Nitrogen) 6 mg/dL (8.4-25.7); Bilirubin, Total 0.5 mg/dL (0.2-1.2); Calc. Creatinine Clearance 0 mL/min (70-130); Calcium 9.6 mg/dL (7.8-10.44); Carbon Dioxide 23 mmol/L (23-31); Chloride 95 mmol/L (98-107); Estimated GFR 100; Globulin 3.2 g/dL (2.4-3.5); Glucose 89 mg/dL (80-115); Potassium 3.8 mmol/L (3.5-5.1); Protein, Total 7.7 g/dL (5.8-8.1); Sodium 132 mmol/L (136-145)
[2022-12-07] MEDS ORDERED: HYDROcodone/Acetaminophen 5/325 mg Tablet ONE (15:24)
[2022-12-07] MEDS ORDERED: Ibuprofen 800 MG TAB ONE (15:24)
[2022-12-07] MEDS ORDERED: methylPREDNISolone Sod Succ/PF 125 MG/2 ML VIAL ONE (15:24)
== END 2022-12-07 16:00 | disposition home or self-care (01) ==
LOC: BURERS 13:50
DX: J44.1 Chronic obstructive pulmonary disease with (acute) exacerbation (principal); R07.81 Pleurodynia; I10 Essential (primary) hypertension; M19.90 Unspecified osteoarthritis, unspecified site; F17.210 Nicotine dependence, cigarettes, uncomplicated
CPT/HCPCS: 71045; 80053; 83880; 84484; 85025; 85379; 93005; 94640; 94760; 96374; J2930; J7620

== ENCOUNTER 2023-05-01 14:34 | Emergency (ER) | payer OTHER ==
[2023-05-01] MEDS ORDERED: Morphine 4 MG/ML VIAL ONE (14:50)
[2023-05-01] MEDS ORDERED: Acetaminophen 325 MG TAB ONE (14:50)
== END 2023-05-01 15:42 | disposition home or self-care (01) ==
LOC: BURERS 14:34
DX: M54.2 Cervicalgia (principal); I10 Essential (primary) hypertension; E11.9 Type 2 diabetes mellitus without complications; J44.9 Chronic obstructive pulmonary disease, unspecified; M19.90 Unspecified osteoarthritis, unspecified site; F17.210 Nicotine dependence, cigarettes, uncomplicated; Z86.73 Personal history of transient ischemic attack (TIA), and cerebral infarction without residual deficits
CPT/HCPCS: 96372; 99283; J2270

== ENCOUNTER 2023-05-24 13:42 | Emergency (ER) | payer OTHER ==
[2023-05-24] MEDS ORDERED: Ketorolac Tromethamine 60 MG/2 ML VIAL ONE (14:10)
== END 2023-05-24 14:15 | disposition home or self-care (01) ==
LOC: BURERS 13:42
DX: M54.2 Cervicalgia (principal); E11.9 Type 2 diabetes mellitus without complications; I10 Essential (primary) hypertension; F17.210 Nicotine dependence, cigarettes, uncomplicated; J44.9 Chronic obstructive pulmonary disease, unspecified
CPT/HCPCS: 96372; 99283; J1885

== ENCOUNTER 2023-10-31 19:51 | Emergency (ER) | payer OTHER ==
[2023-10-31] MEDS ORDERED: Morphine 4 MG/ML VIAL ONE (20:19)
== END 2023-10-31 21:23 ==
LOC: BURERS 19:51
DX: S09.90XA Unspecified injury of head, initial encounter (principal); J44.9 Chronic obstructive pulmonary disease, unspecified; I10 Essential (primary) hypertension; W19.XXXA Unspecified fall, initial encounter; Z86.73 Personal history of transient ischemic attack (TIA), and cerebral infarction without residual deficits; Z79.899 Other long term (current) drug therapy
CPT/HCPCS: 70450; 71046; 72125; 96374; J2270

== ENCOUNTER 2024-02-13 14:04 | Emergency (ER) | payer MEDICARE, OTHER | END 2024-02-13 14:53 | disposition home or self-care (01) | LOC: BURERS 14:04 | DX: S82.832A Other fracture of upper and lower end of left fibula, initial encounter for closed fracture (principal); J44.9 Chronic obstructive pulmonary disease, unspecified; I10 Essential (primary) hypertension; F17.210 Nicotine dependence, cigarettes, uncomplicated; X58.XXXA Exposure to other specified factors, initial encounter ==

== ENCOUNTER 2024-10-23 10:11 | Emergency (ER) | payer MEDICARE, OTHER ==
[2024-10-23 10:48] LABS: #Basophils 0.1 thou/uL (0.0-0.2); #Eosinophils 0.1 thou/uL (0.0-0.7); #Monocytes 0.5 thou/uL (0.11-0.59); #Neutrophils 4.3 thou/uL (1.40-6.50); %Basophils 0.8 % (0.0-1.0); %Eosinophils 1.6 % (0.0-10.0); %Lymphocytes 28.3 % (21.0-51.0); %Monocytes 7.2 % (0.0-10.0); %Neutrophils 62.1 % (42.0-75.0); Hemoglobin 13.9 g/dL (14.0-18.0); Mean Corpuscular HGB CONC 33.1 g/dL (32.0-36.0); Mean Corpuscular Hemoglobin 28.3 pg (27.0-31.0); Mean Corpuscular Volume 85.5 fl (78.0-98.0); Mean Platelet Volume 7.1 fL (7.4-10.4); Platelet Count 302 10x3/uL (130-400); RBC Distribution Width 10.4 % (11.5-14.5); Red Blood Cell (RBC) Count 4.92 mill/uL (4.70-6.10)
[2024-10-23 10:56] LABS: INR-International Normal Ratio 1.1; Prothrombin Time 14.2 sec (12.0-14.7)
[2024-10-23 11:02] LABS: ALT (SGPT) 17 U/L (8-55); AST (SGOT) 13 U/L (5-34); Albumin 3.5 g/dL (3.4-4.8); Alkaline Phosphatase 63 U/L (40-110); Anion Gap 18 mmol/L (10-20); BUN (Urea Nitrogen) 9 mg/dL (8.4-25.7); Bilirubin, Total 0.4 mg/dL (0.2-1.2); Calc. Creatinine Clearance 0 mL/min (70-130); Calcium 9.8 mg/dL (7.8-10.44); Carbon Dioxide 27 mmol/L (23-31); Chloride 99 mmol/L (98-107); Estimated GFR 92; Globulin 3.4 g/dL (2.4-3.5); Potassium 3.6 mmol/L (3.5-5.1); Protein, Total 6.9 g/dL (5.8-8.1); Sodium 140 mmol/L (136-145)
[2024-10-23 11:06] LABS: Troponin I 0.028 ng/mL (< 0.028)
[2024-10-23 11:08] LABS: Critical Call Chemistry ERS.LL1@ 1105; Glucose 412 mg/dL (80-115)
[2024-10-23 11:08] LABS: Bilirubin Negative (Negative); Blood, Urine Negative (Negative); Clarity Clear (Clear); Glucose, Urine (Dipstick) >=1000 mg/dL (Negative); Ketone, Urine 80 mg/dL (Negative); Leukocyte Negative (Negative); Nitrite Negative (Negative); Protein, Urine (Dipstick) Negative (Neg-Trace); Urobilinogen 0.2 mg/dL (Less than 2); pH, Urine 5.5 (5.0-9.0)
[2024-10-23 11:10] LABS: Bacteria/HPF None Seen HPF (None Seen); CAUTI Indications for Culture Dysuria,urgency,freq; RBC/HPF None Seen HPF (0-3); Squamous Epithelial 0-3 HPF (0-3); Urine Culture Reflex No No; WBC/HPF None Seen HPF (0-3)
[2024-10-23 11:11] LABS: Acetaminophen Less than 10 mcg/mL (Less than 10); Alcohol Less than 10.0 mg/dL (Less than 10); Salicylate Less than 8.0 mg/dL (Less than 8.0)
[2024-10-23 11:18] LABS: Amphetamine Not Detected (NotDetected); Barbiturates Screen Not Detected (NotDetected); Benzodiazepine Screen Not Detected (NotDetected); Cocaine Metabolite Screen Not Detected (NotDetected); Methadone Not Detected (NotDetected); Methamphetamine Not Detected (NotDetected); Opiate Screen Not Detected (NotDetected); Oxycodone Screen Not Detected (NotDetected); Phencyclidine (PCP) Not Detected (NotDetected); THC/Cannabinoid Screen Not Detected (NotDetected); Tricyclic Screen Not Detected (NotDetected)
[2024-10-23] MEDS ORDERED: hydrALAZINE 20 MG/ML VIAL ONE (11:45)
[2024-10-23] MEDS ORDERED: Insulin Regular, Human 100 UNIT/ML 10 ML VIAL ONE (11:45)
[2024-10-23] MEDS ORDERED: Aspirin Chewable 81 MG TAB ONE (11:45)
[2024-10-23] MEDS ORDERED: Acetaminophen 325 MG TAB ONE (13:00)
[2024-10-23] MEDS ORDERED: Ondansetron ODT 4 MG TAB ONE (13:40)
== END 2024-10-23 15:02 | disposition short-term general hospital (02) ==
LOC: BURERS 10:11 → EEVIPCON 10:11 → BURERS 15:02
DX: I63.9 Cerebral infarction, unspecified (principal); I10 Essential (primary) hypertension; E11.65 Type 2 diabetes mellitus with hyperglycemia; R29.703 NIHSS score 3; J44.9 Chronic obstructive pulmonary disease, unspecified; E78.5 Hyperlipidemia, unspecified; F17.210 Nicotine dependence, cigarettes, uncomplicated; Z79.899 Other long term (current) drug therapy
CPT/HCPCS: 36415; 70450; 71045; 80053; 80306; 80307; 81001; 84484; 85025; 85610; 85730; 93005; 94760; 96361; 96374; J0360; J1815; Q0162

== ENCOUNTER 2025-06-17 07:05 | Emergency (ER) | payer MEDICARE ==
[2025-06-17 07:45] LABS: Hematocrit 31.1 % (42.0-52.0); Hemoglobin 10.9 g/dL (14.0-18.0); MDiff Complete? YES; Mean Corpuscular Hemoglobin 29.1 pg (27.0-31.0); Mean Corpuscular Volume 82.9 fl (78.0-98.0); Platelet Count 157 10x3/uL (130-400); Red Blood Cell (RBC) Count 3.75 mill/uL (4.70-6.10); White Blood Cell (WBC) Count 4.5 10x3/uL (4.8-10.8)
[2025-06-17 07:54] LABS: Troponin I Less than 0.010 ng/mL (< 0.028)
[2025-06-17] MEDS ORDERED: dilTIAZem 25 MG/5 ML VIAL ONE (07:55)
[2025-06-17 07:57] LABS: ALT (SGPT) 10 U/L (Less than 45); AST (SGOT) 13 U/L (11-34); Albumin 2.6 g/dL (3.1-4.5); Alkaline Phosphatase 70 U/L (40-110); Anion Gap 17 mmol/L (10-20); BUN (Urea Nitrogen) 16 mg/dL (8.4-25.7); Bilirubin, Total 0.3 mg/dL (0.3-1.2); Calc. Creatinine Clearance 0 mL/min (70-130); Calcium 8.4 mg/dL (7.8-10.44); Carbon Dioxide 27 mmol/L (23-31); Chloride 97 mmol/L (98-107); Globulin 3.1 g/dL (2.4-3.5); Glucose 122 mg/dL (83-110); Potassium 3.6 mmol/L (3.5-5.1); Sodium 137 mmol/L (136-145)
== END 2025-06-17 11:23 | disposition short-term general hospital (02) ==
LOC: BURERS 07:05
DX: I48.91 Unspecified atrial fibrillation (principal); E86.0 Dehydration; J44.9 Chronic obstructive pulmonary disease, unspecified; I10 Essential (primary) hypertension; E11.9 Type 2 diabetes mellitus without complications; Z86.73 Personal history of transient ischemic attack (TIA), and cerebral infarction without residual deficits; Z87.891 Personal history of nicotine dependence
CPT/HCPCS: 71045; 80053; 83880; 84484; 85025; 94760; J2270; 36415; 96361; 96365; 96366; 96375; 96376